=== PATIENT | male | born 1960 | race Caucasian/White ===

== ENCOUNTER 2017-11-24 16:29 | Emergency (ER) | payer OTHER, SELFPAY ==
[2017-11-24 16:29] VITALS: BP 139/86; PULSE 82; RESP 17; TEMP 35.8; O2SAT 98; BMI 25.0
--- NOTE | 2017-11-24 17:17 | CT_ITS ---
STUDY: CT ABDOMEN AND PELVIS WITHOUT CONTRAST REASON FOR EXAM: Male, 57 years old. Right flank pain RADIATION DOSAGE (If Supplied By Facility): CTDIvol = ( 11.22 ) mGy, DLP = ( 513.85 ) mGycm TECHNIQUE: Transaxial images were obtained from the lower chest to the upper thighs without oral contrast, and without intravenous contrast. Sagittal and coronal images were reconstructed. Individualized dose optimization techniques were used for this CT. COMPARISON: None. FINDINGS: There is minimal dependent atelectasis in both lung bases. There is no pleural effusion. The heart is normal in size. The liver is unremarkable. The gallbladder and biliary ducts are unremarkable. The spleen is unremarkable. The pancreas is unremarkable. The adrenal glands are unremarkable. There is a 3 mm calcification in the midpole of the right kidney. There are a few punctate calcifications in the lower pole of the right kidney. There is mild dilatation of the collecting system in the right kidney. There is mild dilatation of the right ureter. There is a 7 mm calcification in the distal right ureter just above the UVJ. There is a punctate calcification in the lower pole of the left kidney. There is no dilatation of the collecting system in the left kidney. The stomach is unremarkable. The small bowel is unremarkable. The colon is unremarkable. The appendix is visualized and appears normal. The aorta and branch vessels are unremarkable. The IVC is unremarkable. There are small lymph nodes scattered in the retroperitoneum. There is no free fluid in the abdomen. The urinary bladder is decompressed. The prostate is normal in size. There are small phleboliths scattered in the lower pelvis. The soft tissues are unremarkable. There are mild degenerative changes in the visualized spine. CT/Abdomen/Pelvis without Cont IMPRESSION: There is a 7 mm stone in the distal right ureter just above the UVJ with mild hydroureter and hydronephrosis. There are a few calyceal stones in the right kidney ranging from 1 to 3 mm in size. There is a punctate stone in the lower pole of the left kidney. There are no acute bowel abnormalities. There is no ascites. Electronically Signed: Vicenta Pardo MD at 18:21 EST Tel Direct: [phone], Service support ,
--- NOTE | 2017-11-24 17:21 | ED.DCSUM_ITS ---
- ER Visit Summary Date of Service: 11/24/17 Chief Complaint: Flank pain History of Present Illness: The patient is a 57 M who has had difficulty urinating all week. States he has a history of prostatic enlargement. To be on a medication possibly Flomax but it made his blood pressure too low so he went off of it. Talk to his doctor today and they called in another medicine. Patient states he has felt like he has not been able to empty his bladder. Today he noticed sudden severe onset of pain in the right suprapubic region going into the right flank. Notes his urine is dark. He feels nauseated. He has a history of kidney stones in the remote past. Physical Examination: Afebrile vital signs are stable Gen: Well-nourished well-developed and appears very uncomfortable in the bed. Unable to find position of comfort. Head: Normocephalic atraumatic Eyes: Perrl EOMI ENT: TMs clear no rhinorrhea moist mucous membranes Neck: Supple no lymphadenopathy no JVD nontender CVS: Regular rate rhythm no murmurs normal S1-S2 Respiratory: No distress clear to auscultation bilaterally chest nontender Abdomen: Soft palpation suprapubic region nondistended normal bowel sounds no masses Back: CVA tenderness Extremity: Nontender no edema Skin: Normal color no rash Neuro: alert orientated ?3 CN II-XII intact normal strength sensation reflexes gait cerebellar Psych: Normal affect normal mood Test Results: White count elevated at 12. Normal BUN/creatinine. Urinalysis greater than 100 red blood cells no evidence of infection. CT flank demonstrates a distal 7 mm ureteral stone with associated hydronephroureter. Emergency Department Course and Treatment: Bedside ultrasound does not show a distended bladder. IV was established and the patient received Toradol, morphine, and Zofran, in addition to IV fluids. Patient's pain is dramatically improved and he is resting very comfortably. Plan will be outpatient analgesia with urologic follow-up. Return if worsening or pain not controlled. Impression: 1. Right kidney stone with colic This note was generated with [employer] dictation software. It may contain incorrect words, spelling, and punctuation that were not noted in review of the chart prior to signing ED Disposition - Plan for ED Patient: Disposition: Home or Assisted Living Chief Complaint: Flank Pain Instructions: ED Stone Renal W Colic Prescriptions: Hydrocodone Bitart/Apap 5-325 [[place] 5/325] 1 - 2 tab PO Q4H PRN PRN #20 tab PRN Reason: Pain Ondansetron [Zofran Odt] 4 mg PO Q8H PRN PRN #10 tab PRN Reason: Nausea Referrals: [facility] Doctor,Out of [Primary Care Provider] - Jabier Galvez MD [STAFF PHYSICIAN] - (call on Monday to arrange urology follow up.) Additional Instructions: Return if your pain is not controlled or you are having any concerns.
[2017-11-24] MEDS: Ketorolac 30 MG/ML Syringe IV (17:23)
[2017-11-24] MEDS: Ondansetron 4 MG/2 ML Vial IV (17:24)
[2017-11-24] MEDS: 0.9% Normal Saline 1,000 ML 250 ML IV (17:24)
[2017-11-24 17:37] LABS: Bacteria 0 SEEN /hpf (None Seen); Mucous, Urine 0 SEEN /hpf (<or=2+); Squamous Epithelial Cells - UA 0 SEEN /hpf (0-5)
[2017-11-24 17:38] LABS: Color, Urine Yellow (Yellow); Glucose, Dipstick Normal (Normal); Ketone-Dipstick Negative (Negative); Leukocyte Esterase-Dipstick 25 /ul (Negative); Nitrite-Dipstick Negative (Negative); Occult Blood-Urine 250 /ul (Negative); Protein-Dipstick 30 mg/dl (Negative); Urine Bilirubin Dipstick Negative (Negative); Urine Clarity Cloudy (Clear); Urine Urobilinogen 1 mg/dl (Normal); Urine pH 6.5 (5.0 - 8.0)
[2017-11-24 17:39] LABS: Absolute Lymphocyte Count 1.28 X10^3/ul (0.83-4.51); Absolute Neutrophil Count 9.9 X10^3/uL (2.0-7.7); Basophil# 0.03 X10^3/uL; Basophil% 0.3 % (0-1); Eosinophil# 0.12 X10^3/uL; Hematocrit 41.3 % (40-54); Hemoglobin 14.2 g/dl (13.0-16.5); Lymphocyte # 1.28 X10^3/ul (4.0); Lymphocyte % 10.7 % (19-41); Mean Corp Hgb Conc 34.4 g/gl (32-36); Mean Corpuscular Hgb 31.1 pg (27.0-32.0); Mean Corpuscular Volume 90.6 fL (80-94); Mean Platelet Vol. 9.7 fl (6.2-12.0); Monocyte# 0.62 X10^3/uL; Monocyte% 5.2 % (0-10); Neutrophil # 9.92 X10^3/uL (2.7-7.7); Neutrophil % 82.6 % (47-70); POSITIVE COUNT NO; POSITIVE DIFFERENTIAL NO; POSITIVE MORPHOLOGY NO; Platelet Count 274 K/mm3 (150-450); RBC Distribution Width CV 12.4 % (11.6-14.6); RBC Distribution Width SD 40.8 fl (35.1-43.9); Red Blood Count 4.56 M/mm3 (4.6-6.2)
[2017-11-24 17:44] LABS: Red Blood Cells-Urine > 100 SEEN /hpf (0-5); White Blood Cells 0-5 SEEN /hpf (0-5)
[2017-11-24 17:58] LABS: Anion Gap 7 (5-15); BUN 19 mg/dL (7-18); BUN/Creat Ratio 18.1 RATIO (10-20); Chloride 107 mmol/L (98-107); Creatinine, Serum 1.05 mg/dL (0.70-1.30); EST Glomerular Filtration Rate 78 mL/min (>60); Est Glom Filt Rate - Afr Amer 94 mL/min (>60); Glucose 107 mg/dL (70-110); Potassium 3.6 mmol/L (3.5-5.1); Sodium Level 142 mmol/L (136-145)
[2017-11-24 18:21] VITALS: BP 116/76; PULSE 61; RESP 14; O2SAT 97
[2017-11-24 19:06] VITALS: BP 120/63; PULSE 90; RESP 15; O2SAT 99
[2017-11-24 19:17] VITALS: BP 120/63; PULSE 90; RESP 15; O2SAT 99
== END 2017-11-24 19:18 | disposition home or self-care (01) ==
PROVIDERS: Emergency Provider Emergency Medicine
DX: N13.2 Hydronephrosis with renal and ureteral calculous obstruction (principal); Z87.442 Personal history of urinary calculi; N40.1 Benign prostatic hyperplasia with lower urinary tract symptoms
CPT/HCPCS: 74176; 80048; 81001; 85025; 96361; 96374; 96375; 99282; J7030; J2405

== ENCOUNTER → 2017-12-07 15:36 | Outpatient (CLI) | payer OTHER, SELFPAY ==
--- NOTE | 2017-12-07 15:39 | RAD_ITS ---
STUDY: X-RAY - ABDOMEN/PELVIS REASON FOR EXAM: Male, 57 years old. Follow-up renal calculi. TECHNIQUE: Two AP supine views of the abdomen and pelvis. COMPARISON: CT of the abdomen and pelvis, November 26, 2017. FINDINGS: Normal visualized lung bases. There is an unremarkable bowel gas pattern. There is no demonstrated free abdominal air. The visualized liver, spleen and kidneys are grossly normal in size and morphology. There is nonvisualization of the small right renal calculus seen on the prior study. There are phleboliths in the pelvis. It is thought to be the distal ureteral calculus lies either in the bladder at the UPJ. There is mild degenerative change of the lumbar spine. RAD/Abdomen Single View IMPRESSION: Calcification within the pelvis thought to be the right distal ureteral calculus. Electronically Signed: Tam Balderrama DO at 16:08 EST Tel [phone], Service support ,
== END ==
PROVIDERS: Visit Provider Urology
DX: N20.0 Calculus of kidney (principal)
CPT/HCPCS: 74018

== ENCOUNTER 2017-12-13 08:40 | Day surgery (SDC) | payer OTHER, SELFPAY ==
[2017-12-13] VITALS (8 sets, daily range): BP systolic 124–143; BP diastolic 78–97; PULSE 54–79; RESP 16–18; TEMP 36.6–36.9; O2SAT 99–100; BMI 24.5
--- NOTE | 2017-12-13 08:46 | RAD_ITS ---
STUDY: X-RAY - ABDOMEN/PELVIS REASON FOR EXAM: Male, 57 years old. History of kidney stones. TECHNIQUE: Single AP view of the abdomen / pelvis. COMPARISON: Comparison is made with prior study dated December 07, 2017. FINDINGS: There is a moderate amount of colonic fecal material. Stable 4.8 mm calcification in the right hemipelvis suggestive of a calculus at the right ureterovesical junction. There are calcified phleboliths in the pelvis. Normal visualized osseous structures. RAD/Abdomen Single View IMPRESSION: Stable appearance of the 4.8 mm calcification in the right hemipelvis most likely representing a calculus at the right ureterovesical junction. Electronically Signed: Norm Howell MD at 11:42 EST Tel [phone], Service support ,
[2017-12-13] MEDS: Cefazolin 2 GM in 0.9% Normal Saline 100 ML IV (10:05)
--- NOTE | 2017-12-13 10:29 | DCINST_ITS ---
Discharge Diet: Light diet - advance as tolerated Discharge Activity: Return to Normal Activity Call your doctor if your incision/area has: Sudden Increased Bleeding Call your doctor if you observe: Fever of 101 or Higher Instructions: Shock Wave Lithotripsy Allergies/Adverse Reactions: Allergies No Known Allergies Allergy (Verified 12/12/17 10:01) Medications to take at Discharge Cholecalciferol (Vitamin D3) [Vitamin D3] 2,000 unit PO DAILY 11/24/17 Hydrocodone Bitart/Apap 5-325 [[place] 5/325] 1 - 2 tab PO Q4H PRN PRN #20 tab Multivitamins,Ther W-Minerals [Multivitamin With Minerals] 1 tablet PO DAILY Ondansetron [Zofran Odt] 4 mg PO Q8H PRN PRN #10 tab 11/24/17 Ciprofloxacin [Cipro] 500 mg PO BID #10 tab 12/13/17 Hydrocodone/Acetaminophen [[place] 5-325 Tablet] 1 ea PO Q4H PRN PRN 5 Days #20 tab 12/13/17 Tamsulosin HCl [Flomax] 0.4 mg PO DAILY #10 cap 12/13/17 The following prescriptions were given: Hydrocodone/Acetaminophen [[place] 5-325 Tablet] 1 ea PO Q4H PRN PRN 5 Days #20 tab PRN Reason: Pain Tamsulosin HCl [Flomax] 0.4 mg PO DAILY #10 cap Ciprofloxacin [Cipro] 500 mg PO BID #10 tab Primary Care Physician: [facility] Doctor,Out of [Primary Care Provider] - Please Follow Up With: Jabier Galvez MD - call if need to change appt. When: MondayJanuary 09 at 9:45 am, do Xray right before appt.
--- NOTE | 2017-12-13 11:04 | PCM.OPRPT ---
Problem List (1) Right ureteral calculus Status: Acute Report of Operation Date of Procedure: 12/13/17 Pre-Operative Diagnosis: Right ureteral calculi Post-Operative Diagnosis: Same Surgery/Procedure Performed:: Cystoscopy and placement of a right ureteral catheter and right ESWL, shockwave lithotripsy. Description of Surgical Findings:: 57-year-old male was taken back to the operating room after smooth induction of general anesthesia we used the fluoroscopy table to find what appear to be a stone in the distal right ureter the penis testicles were then prepped and draped in usual sterile fashion when the bladder with a 21 Serbian rigid cystourethroscope the entire length of the urethra was normal the prostate was normal identified the trigone and in the right trigone the ureter was fairly swollen I could see a little bit of the tiny stone peeping out the end of the distal ureter I then advanced a wire and a Pollack catheter up that side to identify where the stone is under fluoroscopy we then located the stone in the lower distal ureter of the right side we then placed the stone in the F2 focal point of the lithotripter machine and we applied 3000 shockwaves to the stone at a rate of 90 power up to 7 and at the end of the treatment cycle is only a few tiny fragments left in the distal ureter or head pass into the bladder once we completed the treatment that I pulled out the wire nose no stent was left within the patient the bladder was drained and the patient anesthetic was reversed taken back to the PACU in good condition we can see him back in a few weeks with a KUB appear to be a successful treatment of the stone. Type of Anesthesia:: General Drains: none - Admit VTE Documentation VTE Present on Admission: No VTE Mechan Device Prophylaxis: SCD's VTE Pharm Prophylaxis ordered?: No Reason prophylaxis not ordered:: Treatment Not Indicated
== END 2017-12-13 14:20 | disposition home or self-care (01) ==
LOC: SDC 08:41 → AC 08:42
PROVIDERS: Visit Provider Urology
PROC: (CPT 50590; principal; 2017-12-13 10:10)
DX: N20.1 Calculus of ureter (principal); Z87.442 Personal history of urinary calculi; F17.200 Nicotine dependence, unspecified, uncomplicated
CPT/HCPCS: 50590; 74018; J7120; C1769

== ENCOUNTER → 2018-01-09 08:23 | Outpatient (CLI) | payer OTHER, SELFPAY ==
--- NOTE | 2018-01-09 09:10 | RAD_ITS ---
STUDY: X-RAY - ABDOMEN/PELVIS REASON FOR EXAM: Male, 57 years old. Right flank pain x2 days TECHNIQUE: Two AP supine views of the abdomen and pelvis. COMPARISON: Previous study of December 13, 2017 FINDINGS: Normal visualized lung bases. There is an unremarkable bowel gas pattern. There is no demonstrated free abdominal air. The visualized liver, spleen and kidneys are grossly normal in size and morphology. Bilateral pelvic phleboliths are present. Normal visualized osseous structures. RAD/Abdomen Single View IMPRESSION: Normal x-ray examination of the abdomen and pelvis. If clinically indicated, repeat CT of the abdomen and pelvis without contrast may be helpful for further evaluation. Electronically Signed: Bc Khan MD at 17:05 EDT , Service support ,
== END ==
LOC: RAD.FUTURE 08:27 → RAD 09:08
PROVIDERS: Visit Provider Urology
DX: N20.0 Calculus of kidney (principal)
CPT/HCPCS: 74018

== ENCOUNTER → 2018-01-11 07:48 | Outpatient (CLI) | payer OTHER, SELFPAY ==
--- NOTE | 2018-01-11 07:50 | US_ITS ---
STUDY: RENAL ULTRASOUND - COMPLETE REASON FOR EXAM: Male, 57 years old. Right flank pain. Kidney stones. Recent lithotripsy. TECHNIQUE: Ultrasound evaluation of the kidneys was performed with real-time and static mcallister-scale imaging. COMPARISON: Comparison is made with prior CT abdomen dated November 24, 2017. FINDINGS: RIGHT KIDNEY: Normal location of the right kidney, which is normal in size. The right kidney measures 9.7 cm x 5.7 cm x 4.6 cm. There is a normal cortex of the right kidney. The renal cortex measures 1.3 cm. There is no right renal mass or cyst. There are no right renal calculi. Mild dilatation of the right renal pelvis without hydronephrosis. DISTAL RIGHT URETER: There is non-visualization of the distal right ureter. There is no demonstrated right ureterovesical junction calculus. There is a visualized right ureteral jet. LEFT KIDNEY: Normal location of the left kidney, which is normal in size. The left kidney measures 9.9 cm x 5.7 cm x 5.6 cm. There is a normal cortex of the left kidney. The renal cortex measures 1.6 cm. There is no left renal mass or cyst. There are no left renal calculi. There is no left hydronephrosis. DISTAL LEFT URETER: There is non-visualization of the distal left ureter. There is no demonstrated left ureterovesical junction calculus. There is a visualized left ureteral jet. BLADDER: The distended urinary bladder has a volume of 37 ml. There is a normal wall thickness of the distended urinary bladder. There is no demonstrated mass within the urinary bladder. There are no demonstrated bladder calculi. Incidental note is made of fatty infiltration of the liver. US/Kidney and Bladder IMPRESSION: Minimal fullness of the right renal pelvis. No other abnormality is seen. Electronically Signed: Norm Howell MD at 12:18 EDT Tel [phone], Service support ,
== END ==
PROVIDERS: Visit Provider Nurse Practitioner Adult Health
DX: N20.0 Calculus of kidney (principal)
CPT/HCPCS: 76770

== ENCOUNTER → 2023-07-12 | Outpatient (CLI) | payer MEDICAID, SELFPAY ==
--- NOTE | 2023-07-12 07:52 | CT_ITS ---
STUDY: CT MAXILLOFACIAL SINUSES REASON FOR EXAM: Male, 62 years old. CHRONIC SINUSITIS RADIATION DOSAGE (If Supplied By Facility): CTDIvol = ( 28.14 ) mGy, DLP = ( 682.87 ) mGycm TECHNIQUE: The patient was scanned in a multi detector CT scanner. High resolution axial imaging was performed without the administration of intravenous contrast material. Sagittal and coronal images were reconstructed. Individualized dose optimization techniques were used for this CT. COMPARISON: None. FINDINGS: FRONTAL SINUSES: Normal aeration, without mucosal inflammatory disease. ETHMOIDAL SINUSES: There is partial opacification of the ethmoid sinuses bilaterally. MAXILLARY SINUSES: Normal aeration, without mucosal inflammatory disease. SPHENOIDAL SINUSES: Minimal mucosal thickening along the medial aspect of the left sphenoid sinus. There is patency of the bilateral maxillary infundibuli with normal uncinate processes, ethmoid bullae, and hiatus semilunaris. Normal bilateral middle turbinates. Normal bilateral inferior turbinates. Normal midline nasal septum. There is patency of the bilateral nasal airways. The visualized osseous structures are normal. The visualized bilateral orbital contents are normal. CT/Sinus/Facial Bone IMPRESSION: Partial opacification of the ethmoid sinuses bilaterally. Minimal mucosal thickening along the medial aspect of the left sphenoid sinus. Electronically Signed: Norm Howell MD at 15:12 EDT ,
== END | disposition home or self-care (01) ==
PROVIDERS: Referring Provider Otolaryngology; Visit Provider Otolaryngology
DX: J32.8 Other chronic sinusitis (principal)
CPT/HCPCS: 70486